=== PATIENT | male | born 1965 | race Caucasian/White ===

== ENCOUNTER 2024-05-25 14:35 | Outpatient (CLI) | payer BC | END 2024-05-25 14:36 | disposition home or self-care (01) | LOC: SCSMRI 14:35 | PROVIDERS: ATTEND Orthopaedic Surgery | DX: S46.012A Strain of muscle(s) and tendon(s) of the rotator cuff of left shoulder, initial encounter (principal); S73.192A Other sprain of left hip, initial encounter; M50.30 Other cervical disc degeneration, unspecified cervical region; M75.32 Calcific tendinitis of left shoulder; M62.50 Muscle wasting and atrophy, not elsewhere classified, unspecified site | CPT/HCPCS: 72141 ==